=== PATIENT | female | born 1985 | race Caucasian/White ===

== ENCOUNTER → 2018-03-06 | Outpatient (CLI) | payer OTHER ==
[~2018-03-06] MED LIST: IBUPROFEN 800800 M1 PO; NORCO 5-325 TA1 EACH PO
== END ==
LOC: M.MRI 14:15
DX: M51.36 Other intervertebral disc degeneration, lumbar region (principal); M25.552 Pain in left hip

== ENCOUNTER → 2018-03-15 | Outpatient (CLI) | payer OTHER | LOC: M.MRI 17:00 | DX: M47.896 Other spondylosis, lumbar region (principal); M51.36 Other intervertebral disc degeneration, lumbar region; M51.26 Other intervertebral disc displacement, lumbar region ==

== ENCOUNTER 2018-03-25 23:11 | Emergency (ER) | payer OTHER ==
[~2018-03-25] VITALS: Ht 157.5 cm; Wt 59.0 kg
[2018-03-25] MEDS ORDERED: IBUPROFEN 800800 M1 PO (23:31)
[2018-03-26] MEDS ORDERED: NORCO 5-325 TA1 EACH PO (00:22)
[2018-03-26 00:34] VITALS: BP 150/76
== END 2018-03-26 00:35 | disposition home or self-care (01) ==
LOC: M.ERS 23:11
DX: M25.562 Pain in left knee (principal)

== ENCOUNTER 2018-10-12 20:33 | Emergency (ER) | payer OTHER ==
[~2018-10-12] VITALS: Ht 157.5 cm; Wt 59.0 kg
[2018-10-12] MEDS ORDERED: CELEBREX 200 M200 M1 (20:45)
[2018-10-12 21:24] VITALS: BP 158/109
== END 2018-10-12 21:25 | disposition home or self-care (01) ==
LOC: M.ERS 20:33
DX: S69.81XA Other specified injuries of right wrist, hand and finger(s), initial encounter (principal); W23.0XXA Caught, crushed, jammed, or pinched between moving objects, initial encounter; Y93.89 Activity, other specified; Y92.89 Other specified places as the place of occurrence of the external cause; Y99.8 Other external cause status